=== PATIENT | male | born 2005 | race Caucasian/White ===

== ENCOUNTER 2024-08-16 03:46 | Emergency (ER) | payer OTHER ==
[2024-08-16] MEDS: Aspirin 81 MG Tab.Chew PO ONE (04:30)
[2024-08-16] MEDS: Alum Hydrox/Mag Hydrox/Simeth 30 ML, Lidocaine 2% 15 ML PO ONE (04:38)
[2024-08-16 04:39] LABS: BASOPHILS PERCENT AUTO 0.5 % (0.0-1.0); EOSINOPHILS ABSOLUTE AUTO 0.1 K/mm3 (0.0-0.7); EOSINOPHILS PERCENT AUTO 1.6 % (0.0-5.0); HEMATOCRIT 43.8 % (42.0-52.0); HEMOGLOBIN 15.6 gm/dl (14.0-18.0); IMMATURE GRAN ABSOLUTE AUTO 0.03 K/mm3 (0.00-0.05); IMMATURE GRAN PERCENT AUTO 0.4 % (0.0-0.4); LYMPHOCYTES PERCENT AUTO 36.7 % (50.0-65.0); MEAN CORPUSCULAR HGB CONC 35.6 g/dl (32.0-36.0); MEAN CORPUSCULAR VOLUME 81.4 fl (83.0-99.0); MEAN PLATELET VOLUME 10.6 fl (9.4-12.4); MONOCYTES ABSOLUTE AUTO 0.7 K/mm3 (0.1-1.4); MONOCYTES PERCENT AUTO 8.3 % (2.0-10.0); NEUTROPHILS ABSOLUTE AUTO 4.2 K/mm3 (1.5-8.5); NEUTROPHILS PERCENT AUTO 52.5 % (35.0-45.0); PLATELET COUNT,PLT 243 K/mm3 (150-400); RED BLOOD CELL COUNT 5.38 M/mm3 (4.52-5.90); WHITE BLOOD CELL COUNT,WBC 8.03 K/mm3 (4.5-13.5)
[2024-08-16] MEDS: Sodium Chloride 0.9% 10 ML Syringe FLUSH PRN (04:39)
[2024-08-16 04:49] LABS: BARBITURATE SCREEN,URINE NEGATIVE (CUTOFF=200); BENZODIAZEPINES SCREEN,URINE NEGATIVE (CUTOFF=150); BUPRENORPHINE SCREEN,URINE NEGATIVE (CUTOFF=10); METHADONE SCREEN, URINE NEGATIVE (CUT0FF=200); METHAMPHETAMINES SCREEN, URINE NEGATIVE (CUTOFF=500); OXYCODONE SCREEN,URINE NEGATIVE (CUT0FF=100); THC SCREEN,URINE 20 NG/ML NEGATIVE (CUTOFF=50)
[2024-08-16 05:03] LABS: AMPHETAMINES SCREEN, URINE NEGATIVE (CUTOFF=500)
[2024-08-16 05:15] LABS: A/G RATIO 1.3 (1-2); ALANINE AMINOTRANSFERASE,ALT 57 U/L (16-63); ALBUMIN 4.2 g/dl (3.4-5.0); ALKALINE PHOSPHATASE 104 U/L (46-116); ANION GAP 12.8 (5-15); ASPARTATE AMNIOTRANSFERASE,AST 23 U/L (15-37); BILIRUBIN TOTAL 1.3 mg/dL (0.2-1.0); BLOOD UREA NITROGEN,BUN 17 mg/dL (7-18); BUN/CREATININE RATIO 15.5 (14-18); CALCIUM 8.9 mg/dL (8.5-10.1); CARBON DIOXIDE,CO2 29 mEq/L (21-32); CHLORIDE,CL 102 mEq/L (98-107); CREATININE 1.1 mg/dL (0.7-1.3); EST CRCL DRUG DOSING (CG) 108.01 mL/min; ESTIMATED GFR 99 mL/min (>60); GLUCOSE RANDOM 96 mg/dL (70-99); POTASSIUM,K 3.8 mEq/L (3.5-5.1); PROTEIN TOTAL,TP 7.5 g/dl (6.4-8.2); SODIUM,NA 140 mEq/L (136-145)
[2024-08-16 05:22] LABS: TROPONIN I HIGH SENSITIVITY < 4 pg/mL (<=76)
[2024-08-16] MEDS ORDERED: Naloxone 0.4 MG/ML SDV IVPUSH PRN (05:27)
[2024-08-16] MEDS: Morphine 4 MG/ML Syringe IVPUSH ONE (05:34)
[2024-08-16] MEDS: Iopamidol 755 Mg/ML 100 ML Bottle IVPUSH ONE (05:55)
[2024-08-16] MEDS: LORazepam 2 MG/ML SDV IVPUSH ONE (06:56)
[2024-08-16] MEDS: Ketorolac 30 MG/ML SDV IVPUSH ONE (07:33)
[2024-08-16] MEDS: methylPREDNISolone Sodium Succinate 125 MG/2 ML SDV IVPUSH ONE (07:33)
== END 2024-08-16 07:49 | disposition home or self-care (01) ==
LOC: JD.ED 03:46
DX: R09.1 Pleurisy (principal); Z79.899 Other long term (current) drug therapy
CPT/HCPCS: 36415; 71045; 71045-26; 71275; 71275-26; 80053; 80306; 83690; 83735; 84484; 85025; 93005; 93010; 96374; 96375; 99284; 99285-25; A9270-GY; J1885; J2060; J2270; J2919; Q9967